=== PATIENT | female | born 1960 | race Caucasian/White ===

== ENCOUNTER 2020-10-11 18:50 | Emergency (ER) | payer BC ==
[~2020-10-11] VITALS: Ht 162.6 cm; Wt 81.2 kg
[~2020-10-11 18:50] MED LIST: ASPIRIN 325MG325 MG PO; ASPIRIN EC81 MG PO; ASPIRIN81 MG PO; ATORVASTATIN CA20 MG PO; BACTROBAN OINT22 GM TOP; CEFUROXIME500 MG PO; CILOSTAZOL50 MG PO; CYMBALTA60 MG PO; FISH OIL 1,0001 EACH PO; HUMALOG MI100 UNIT/2 SQ; IBU600 MG PO; IBU800 MG PO; LEVAQUIN750 MG PO; LIPITOR40 MG PO; MEROPENEM1 GM IV; MIDODRINE HCL5 MG PO; NEURONTIN 400400 MG PO; NEURONTIN800 MG PO; POVIDONE-IOD28.35 GM TOP; PROAMATINE 2.52.5 MG PO; SIMVASTATIN20 MG PO; TIZANIDINE HCL4 MG PO; TOUJEO MAX300 UNIT/1 SQ; TRESIBA SQ; VITAMIN B-121000 MC3 PO; VITAMIN D21250 MCG PO; VITAMIN D250000 UNIT PO; ZOFRAN4 MG PO
[2020-10-11 20:27] LABS: HEMOGLOBIN 11.7 gm/dl (12.3-15.3); RED BLOOD COUNT 3.92 M/UL (4.00-5.10); WHITE BLOOD COUNT 8.9 K/UL (4.5-11.0)
[2020-10-11] MEDS ORDERED: ZITHROMAX250 MG PO (21:57)
[2020-10-11] MEDS ORDERED: DECADRON6 MG PO (21:58)
== END 2020-10-11 23:05 | disposition home or self-care (01) ==
LOC: ER1 18:50
PROVIDERS: Family Medicine
DX: U07.1 COVID-19 (principal); J12.82 Pneumonia due to coronavirus disease 2019
CPT/HCPCS: 36415; 71045; 80053; 85025; 99284; J7120; M0239

== ENCOUNTER 2021-03-23 12:22 | Inpatient (IN) | payer BC, MEDICARE ==
[~2021-03-23] VITALS: Ht 162.6 cm; Wt 79.8 kg
[~2021-03-23 12:22] MED LIST changes: +DECADRON6 MG PO; +ZITHROMAX250 MG PO
[2021-03-23 15:32] LABS: HEMOGLOBIN 10.3 gm/dl (12.3-15.3); RED BLOOD COUNT 3.36 M/UL (4.00-5.10); WHITE BLOOD COUNT 21.4 K/UL (4.5-11.0)
[2021-03-23] MEDS ORDERED: NOVOLOG FL100 UNIT/1 IM (17:38)
[2021-03-23] MEDS ORDERED: FERROUS SULFAT324 MG PO (17:41)
[2021-03-24 04:29] LABS: HEMOGLOBIN 9.3 gm/dl (12.3-15.3); RED BLOOD COUNT 3.03 M/UL (4.00-5.10); WHITE BLOOD COUNT 18.5 K/UL (4.5-11.0)
[2021-03-25 05:24] LABS: RED BLOOD COUNT 2.98 M/UL (4.00-5.10)
[2021-03-25 05:34] LABS: WHITE BLOOD COUNT 25.1 K/UL (4.5-11.0)
[2021-03-26 04:14] LABS: HEMOGLOBIN 8.4 gm/dl (12.3-15.3); RED BLOOD COUNT 2.8 M/UL (4.00-5.10); WHITE BLOOD COUNT 27.3 K/UL (4.5-11.0)
[2021-03-27 04:28] LABS: HEMOGLOBIN 8.2 gm/dl (12.3-15.3); RED BLOOD COUNT 2.7 M/UL (4.00-5.10); WHITE BLOOD COUNT 21.3 K/UL (4.5-11.0)
[2021-03-28 07:02] LABS: HEMOGLOBIN 8.3 gm/dl (12.3-15.3); RED BLOOD COUNT 2.76 M/UL (4.00-5.10); WHITE BLOOD COUNT 21.4 K/UL (4.5-11.0)
--- NOTE | 2021-03-29 03:27 | NUR ---
DRESSING CHANGE DONE AT 8.1.21 2200, 2 NONADHERENT PADS PLACED, AND WRAPPED WITH GAUZE. SMALL AMOUNT OF DRAINAGE NOTICED ON OLD GAUZE. PT TOLERATED WELL.
[2021-03-29 06:00] LABS: HEMOGLOBIN 8.3 gm/dl (12.3-15.3); RED BLOOD COUNT 2.74 M/UL (4.00-5.10); WHITE BLOOD COUNT 24.5 K/UL (4.5-11.0)
[2021-03-30 03:57] LABS: HEMOGLOBIN 8.1 gm/dl (12.3-15.3); RED BLOOD COUNT 2.72 M/UL (4.00-5.10); WHITE BLOOD COUNT 24.4 K/UL (4.5-11.0)
[2021-03-31 06:55] LABS: HEMOGLOBIN 8.4 gm/dl (12.3-15.3); RED BLOOD COUNT 2.77 M/UL (4.00-5.10)
[2021-04-01 07:00] LABS: HEMOGLOBIN 8.5 gm/dl (12.3-15.3); RED BLOOD COUNT 2.84 M/UL (4.00-5.10); WHITE BLOOD COUNT 14.7 K/UL (4.5-11.0)
[2021-04-01 07:21] LABS: BUN/CREATININE RATIO 27 (0-10)
[2021-04-02 04:08] LABS: HEMOGLOBIN 8.4 gm/dl (12.3-15.3); RED BLOOD COUNT 2.83 M/UL (4.00-5.10); WHITE BLOOD COUNT 16.4 K/UL (4.5-11.0)
[2021-04-02] MEDS ORDERED: ZYVOX600 MG PO (10:11)
[2021-04-02] MEDS ORDERED: CEFUROXIME500 MG PO (10:11)
[2021-04-02] MEDS ORDERED: CYMBALTA60 MG PO (10:11)
[2021-04-02] MEDS ORDERED: HYDROCODON-ACE1 EAC4 PO (10:11)
[2021-04-02] MEDS ORDERED: [UNRECOGNIZED DRUG - SUPPLY] TP (10:14)
[2021-04-02] MEDS ORDERED: [UNRECOGNIZED DRUG - SUPPLY] (10:14)
--- NOTE | 2021-04-02 13:41 | NUR ---
04/02/21 7503 REPORT CALLED TO ANANTH AT [facility]
== END 2021-04-02 13:42 | disposition home health service (06) | DRG 872 ==
LOC: ER1 12:22 → MED SURG 4 16:30 → CDU 16:30 → MED SURG 4 17:19
PROVIDERS: Family Medicine; Internal Medicine; ADMIT Family Medicine
DX: A41.9 Sepsis, unspecified organism (principal); L03.116 Cellulitis of left lower limb; M86.8X6 Other osteomyelitis, lower leg; E11.52 Type 2 diabetes mellitus with diabetic peripheral angiopathy with gangrene; E87.1 Hypo-osmolality and hyponatremia; E11.69 Type 2 diabetes mellitus with other specified complication; E11.621 Type 2 diabetes mellitus with foot ulcer; Z20.822 Contact with and (suspected) exposure to COVID-19; M19.90 Unspecified osteoarthritis, unspecified site; F41.9 Anxiety disorder, unspecified; F32.9 Major depressive disorder, single episode, unspecified; E78.5 Hyperlipidemia, unspecified; E11.36 Type 2 diabetes mellitus with diabetic cataract; H26.9 Unspecified cataract; E11.22 Type 2 diabetes mellitus with diabetic chronic kidney disease; I12.9 Hypertensive chronic kidney disease with stage 1 through stage 4 chronic kidney disease, or unspecified chronic kidney disease; N18.30 Chronic kidney disease, stage 3 unspecified; I25.10 Atherosclerotic heart disease of native coronary artery without angina pectoris; E11.65 Type 2 diabetes mellitus with hyperglycemia; E11.610 Type 2 diabetes mellitus with diabetic neuropathic arthropathy; Z89.511 Acquired absence of right leg below knee; Z90.710 Acquired absence of both cervix and uterus; Z79.4 Long term (current) use of insulin; Z98.890 Other specified postprocedural states; Z88.2 Allergy status to sulfonamides; Z88.0 Allergy status to penicillin; Z88.1 Allergy status to other antibiotic agents; Z82.49 Family history of ischemic heart disease and other diseases of the circulatory system; Z83.6 Family history of other diseases of the respiratory system; Z79.82 Long term (current) use of aspirin; Z79.899 Other long term (current) drug therapy
CPT/HCPCS: 36415; 73590; 73630; 73700; 73721; 80048; 80053; 80202; 82550; 82962; 83605; 85025; 85027; 86140; 86695; 86696; 86787; 87070; 87077; 87081; 87186; 87205; 93926; 93971; 99285; J0696; J1650; J1940; J2185; J3370; J7030; J7070; U0002

== ENCOUNTER → 2021-04-12 | Outpatient (CLI) | payer BC, MEDICARE ==
[~2021-04-12] MED LIST changes: +FERROUS SULFAT324 MG PO; +HYDROCODON-ACE1 EAC4 PO; +NOVOLOG FL100 UNIT/1 IM; +ZYVOX600 MG PO; +[UNRECOGNIZED DRUG - SUPPLY]; +[UNRECOGNIZED DRUG - SUPPLY] TP
== END ==
LOC: WCC 10:00
DX: L03.116 Cellulitis of left lower limb (principal); E11.622 Type 2 diabetes mellitus with other skin ulcer; L97.229 Non-pressure chronic ulcer of left calf with unspecified severity; E11.40 Type 2 diabetes mellitus with diabetic neuropathy, unspecified; E11.51 Type 2 diabetes mellitus with diabetic peripheral angiopathy without gangrene; I10 Essential (primary) hypertension; E66.01 Morbid (severe) obesity due to excess calories; R60.0 Localized edema; E46 Unspecified protein-calorie malnutrition; Z89.511 Acquired absence of right leg below knee; Z68.30 Body mass index [BMI] 30.0-30.9, adult; Z79.4 Long term (current) use of insulin; Z88.2 Allergy status to sulfonamides; Z79.899 Other long term (current) drug therapy

== ENCOUNTER → 2021-04-20 | Outpatient (CLI) | payer BC, MEDICARE | LOC: WCC 10:30 | DX: L03.116 Cellulitis of left lower limb (principal); E11.622 Type 2 diabetes mellitus with other skin ulcer; L97.229 Non-pressure chronic ulcer of left calf with unspecified severity; I10 Essential (primary) hypertension; E11.40 Type 2 diabetes mellitus with diabetic neuropathy, unspecified; E66.01 Morbid (severe) obesity due to excess calories; R60.0 Localized edema; E46 Unspecified protein-calorie malnutrition; Z89.511 Acquired absence of right leg below knee; Z68.30 Body mass index [BMI] 30.0-30.9, adult; Z88.2 Allergy status to sulfonamides; Z79.4 Long term (current) use of insulin; Z79.2 Long term (current) use of antibiotics; Z79.899 Other long term (current) drug therapy ==

== ENCOUNTER → 2021-04-27 | Outpatient (CLI) | payer BC, MEDICARE | LOC: WCC 10:00 | DX: L03.116 Cellulitis of left lower limb (principal); E11.622 Type 2 diabetes mellitus with other skin ulcer; L97.229 Non-pressure chronic ulcer of left calf with unspecified severity; I10 Essential (primary) hypertension; E11.40 Type 2 diabetes mellitus with diabetic neuropathy, unspecified; E66.01 Morbid (severe) obesity due to excess calories; R60.0 Localized edema; E46 Unspecified protein-calorie malnutrition; Z68.30 Body mass index [BMI] 30.0-30.9, adult; Z89.511 Acquired absence of right leg below knee; Z88.2 Allergy status to sulfonamides; Z79.4 Long term (current) use of insulin; Z79.899 Other long term (current) drug therapy ==

== ENCOUNTER → 2021-05-05 | Outpatient (CLI) | payer BC, MEDICARE | LOC: WCC 10:15 | DX: L03.116 Cellulitis of left lower limb (principal); E11.622 Type 2 diabetes mellitus with other skin ulcer; L97.929 Non-pressure chronic ulcer of unspecified part of left lower leg with unspecified severity; I10 Essential (primary) hypertension; E11.40 Type 2 diabetes mellitus with diabetic neuropathy, unspecified; E66.01 Morbid (severe) obesity due to excess calories; R60.0 Localized edema; E46 Unspecified protein-calorie malnutrition; Z68.30 Body mass index [BMI] 30.0-30.9, adult; Z89.511 Acquired absence of right leg below knee; Z88.2 Allergy status to sulfonamides; Z79.4 Long term (current) use of insulin ==

== ENCOUNTER → 2021-05-20 | Outpatient (CLI) | payer BC, MEDICARE | LOC: WCC 08:56 | DX: L03.116 Cellulitis of left lower limb (principal); I10 Essential (primary) hypertension; E11.622 Type 2 diabetes mellitus with other skin ulcer; E11.40 Type 2 diabetes mellitus with diabetic neuropathy, unspecified; E11.36 Type 2 diabetes mellitus with diabetic cataract; H26.9 Unspecified cataract; D64.9 Anemia, unspecified; E66.01 Morbid (severe) obesity due to excess calories; E46 Unspecified protein-calorie malnutrition; Z68.30 Body mass index [BMI] 30.0-30.9, adult; Z79.4 Long term (current) use of insulin; Z89.511 Acquired absence of right leg below knee ==

== ENCOUNTER → 2021-06-02 | Outpatient (CLI) | payer BC, MEDICARE | LOC: WCC 13:56 | DX: L03.116 Cellulitis of left lower limb (principal); E11.622 Type 2 diabetes mellitus with other skin ulcer; L97.929 Non-pressure chronic ulcer of unspecified part of left lower leg with unspecified severity; I10 Essential (primary) hypertension; E11.40 Type 2 diabetes mellitus with diabetic neuropathy, unspecified; E11.51 Type 2 diabetes mellitus with diabetic peripheral angiopathy without gangrene; E66.01 Morbid (severe) obesity due to excess calories; R60.0 Localized edema; E46 Unspecified protein-calorie malnutrition; Z89.511 Acquired absence of right leg below knee; Z68.30 Body mass index [BMI] 30.0-30.9, adult; Z88.2 Allergy status to sulfonamides; Z79.4 Long term (current) use of insulin; Z79.899 Other long term (current) drug therapy ==

== ENCOUNTER → 2021-06-23 | Outpatient (CLI) | payer BC, MEDICARE | LOC: WCC 13:14 | DX: E11.622 Type 2 diabetes mellitus with other skin ulcer (principal); I10 Essential (primary) hypertension; Z79.4 Long term (current) use of insulin; E11.40 Type 2 diabetes mellitus with diabetic neuropathy, unspecified; E66.01 Morbid (severe) obesity due to excess calories; R60.0 Localized edema; E46 Unspecified protein-calorie malnutrition; Z89.511 Acquired absence of right leg below knee | CPT/HCPCS: G0463 ==

== ENCOUNTER → 2021-07-05 | Outpatient (CLI) | payer BC, MEDICARE ==
[2021-07-05 10:43] LABS: HEMOGLOBIN 11.2 gm/dl (12.3-15.3); RED BLOOD COUNT 3.67 M/UL (4.00-5.10); WHITE BLOOD COUNT 8.1 K/UL (4.5-11.0)
== END ==
LOC: LAB 09:12
PROVIDERS: Family Medicine
DX: F41.9 Anxiety disorder, unspecified (principal); E11.9 Type 2 diabetes mellitus without complications; E11.42 Type 2 diabetes mellitus with diabetic polyneuropathy; E78.5 Hyperlipidemia, unspecified
CPT/HCPCS: 36415; 80053; 80061; 83036; 85027

== ENCOUNTER 2021-07-15 04:00 | Emergency (ER) | payer BC, MEDICARE ==
[2021-07-15 05:21] LABS: HEMOGLOBIN 11.5 gm/dl (12.3-15.3); RED BLOOD COUNT 3.74 M/UL (4.00-5.10); WHITE BLOOD COUNT 11.7 K/UL (4.5-11.0)
[2021-07-15 05:40] LABS: BUN/CREATININE RATIO 28 (0-10)
== END 2021-07-15 09:24 | disposition home or self-care (01) ==
LOC: ER1 04:00
PROVIDERS: Physician Assistant
DX: R51.9 Headache, unspecified (principal); R07.9 Chest pain, unspecified; E78.5 Hyperlipidemia, unspecified; E11.9 Type 2 diabetes mellitus without complications; Z90.710 Acquired absence of both cervix and uterus; Z88.2 Allergy status to sulfonamides; Z20.822 Contact with and (suspected) exposure to COVID-19
CPT/HCPCS: 70450; 71045; 80053; 82550; 82553; 83874; 84484; 85025; 93005; 96374; 96375; 99284; J1885; J2270; J2405; U0002

== ENCOUNTER → 2022-03-22 | Outpatient (CLI) | payer BC, MEDICARE | LOC: KOH-I 15:45 | DX: M79.604 Pain in right leg (principal); Z89.519 Acquired absence of unspecified leg below knee; E11.9 Type 2 diabetes mellitus without complications; R60.9 Edema, unspecified | CPT/HCPCS: 93971 ==